=== PATIENT | female | born 1980 | race African-American/Black ===

== ENCOUNTER 2024-12-01 06:53 | Day surgery (SDC) | payer OTHER ==
[~2024-12-01] VITALS: Ht 170.2 cm; Wt 86.4 kg
[~2024-12-01 06:53] MED LIST: FERR-72 PO; METF-445 PO; MONT-40 PO; SIMV5TAB58 PO; SODIUM CHLORIDE 0.9% 1,000 ML ONE
[2024-12-01] MEDS ORDERED: SODIUM CHLORIDE 0.9% 1,000 ML IV ONE (07:00)
[2024-12-01] MEDS ORDERED: MIDAZOLAM HCL 2 MG/2 ML VIAL ONE (08:43)
[2024-12-01] MEDS ORDERED: FentaNYL CITRATE PF 100 MCG/2 ML VIAL ONE (08:43)
[2024-12-01 09:50] VITALS: PULSE 77; RESP 16; O2SAT 100
[2024-12-01] MEDS ORDERED: LIDOCAINE 4% 50 ML SOLUTION ONE (16:23)
[2024-12-01] MEDS ORDERED: LIDOCAINE 2% 11 ML JELLY ONE (16:23)
[2024-12-01] MEDS ORDERED: ACETYLCYSTEINE 10% 100 MG/ML 30 ML ORAL SOLUTION ONE (16:23)
[2024-12-01] MEDS ORDERED: BENZOCAINE 20% 50 MCG/SPRAY 57 GM ONE (16:23)
[2024-12-01] MEDS ORDERED: LEVALBUTEROL 1.25 MG/0.5 ML NEB SOLUTION NEB ONE (16:23)
[2024-12-01] MEDS ORDERED: ALBUTEROL SULFATE 2.5 MG/0.5 ML NEB SOLUTION NEB ONE (16:23)
== END 2024-12-01 13:30 | disposition home or self-care (01) ==
LOC: SDS 06:53
PROVIDERS: ATTEND Internal Medicine Critical Care Medicine
DX: R05.3 Chronic cough (principal); R06.2 Wheezing; R49.0 Dysphonia; R06.1 Stridor; R91.8 Other nonspecific abnormal finding of lung field; E11.9 Type 2 diabetes mellitus without complications; Z79.84 Long term (current) use of oral hypoglycemic drugs
CPT/HCPCS: 31623; 84703; 87206; 87101; 87220; 87070; 31624; 94640; 71045; 87015; J3010; J2250; J2919; J7030; 88108; J7613; Z7610